=== PATIENT | female | born 1995 | race American Indian/Alaskan Native ===

== ENCOUNTER 2021-06-20 18:07 | Emergency (ER) | payer SELFPAY ==
[2021-06-20 18:15] VITALS: BP 142/84
--- NOTE | 2021-06-20 18:34 | Emergency Department Report ---
HPI - General Chief Complaint: Allergic Reaction ED Past Medical Hx - Past Medical History Previous Medical History?: No - Surgical History Past Surgical History?: No ED Review of Systems ROS: Stated complaint: ALLERGIC REACTION LIP,AND RIGHT FOOT BIG TOE Other details as noted in HPI Physical Exam - Physical Exam Vital Signs: Vital Signs 06/20/21 18:12 Temperature 98.6 F Pulse Rate 88 Respiratory 16 Rate Blood Pressure 142/84 [Left] O2 Sat by Pulse 98 Oximetry ED Course Vital Signs 06/20/21 18:12 Temperature 98.6 F Pulse Rate 88 Respiratory 16 Rate Blood Pressure 142/84 [Left] O2 Sat by Pulse 98 Oximetry Critical care attestation.: If time is entered above; I have spent that time in minutes in the direct care of this critically ill patient, excluding procedure time. ED Disposition Condition: Stable
--- NOTE | 2021-06-20 18:38 | Emergency Department Report ---
ED General Adult HPI - General Chief complaint: Allergic Reaction Stated complaint: ALLERGIC REACTION LIP,AND RIGHT FOOT BIG TOE Time Seen by Provider: 06/20/21 18:34 Source: patient Mode of arrival: Ambulatory Limitations: No Limitations - History of Present Illness Initial comments: 26-year-old female presents to the ER today with main complaints of possible infection associated with ingrown toenail but also complains of upper lip swelling which she thinks could be related to allergic reaction. Patient states that she has been dealing with an ingrown toenail to her right great toe off and on for about a month with associated swelling to the tissue around the toenail, intermittent drainage of yellow liquid. She states that she has been soaking it as well as using a lot of [id number] topical creams. She states that symptoms did seem to be getting better but then it just flares up again. She has never seen a supervisor grips to have it removed. She states that she is here today because she is concerned that there is an infection. She denies any recent injury to the toe. She denies any fever or chills. Patient also complains of a small swollen area to her upper lip that she noticed a couple days ago. She states that it started off as a small blister which then popped and since then area has been swollen, itchy and sore to touch. She states that she has had similar in the past, and thought it was related to the allergic reaction, never had to get checked out just resolved on his own. She denies any new lipsticks, new meds, facial products or any other new contacts at this time. She does not take any JESSICA inhibitors. She denies any tongue or throat involvement. She denies any difficulty breathing, cough, wheezing or any additional symptoms at this time. MD Complaint: Allergic Reaction/Lip swelling -: days(s) - Related Data Previous Rx's Medication Instructions Recorded Last Taken Type Acyclovir 400 mg PO TID #21 tablet 06/20/21 Unknown Rx Clindamycin [Clindamycin CAP] 300 mg PO Q6H #40 capsule 06/20/21 Unknown Rx Ibuprofen [Motrin] 600 mg PO Q8H PRN #30 tablet 06/20/21 Unknown Rx Allergies Allergy/AdvReac Type Severity Reaction Status Date / Time No Known Allergies Allergy Verified 06/20/21 18:12 ED Review of Systems ROS: Stated complaint: ALLERGIC REACTION LIP,AND RIGHT FOOT BIG TOE Other details as noted in HPI Comment: All other systems reviewed and negative Constitutional: denies: chills, fever Eyes: denies: eye pain, eye discharge, vision change ENT: denies: ear pain, throat pain, dental pain, hearing loss, epistaxis, congestion Respiratory: denies: cough, shortness of breath, SOB with exertion, SOB at rest, wheezing Cardiovascular: denies: chest pain, palpitations, dyspnea on exertion, edema, syncope, paroxysmal nocturnal dyspnea Endocrine: no symptoms reported Gastrointestinal: denies: abdominal pain, nausea, diarrhea, constipation, hematemesis, melena, hematochezia Genitourinary: denies: urgency, dysuria, frequency, hematuria, discharge, abnormal menses, dyspareunia Musculoskeletal: joint swelling, arthralgia. denies: myalgia Skin: rash, lesions, pruritus. denies: change in color Neurological: denies: headache, weakness, paresthesias Psychiatric: denies: anxiety, depression Hematological/Lymphatic: denies: easy bleeding, easy bruising ED Past Medical Hx - Past Medical History Previous Medical History?: No - Surgical History Past Surgical History?: No - Medications Home Medications: Home Medications Medication Instructions Recorded Confirmed Last Taken Type Acyclovir 400 mg PO TID #21 tablet 06/20/21 Unknown Rx Clindamycin [Clindamycin CAP] 300 mg PO Q6H #40 capsule 06/20/21 Unknown Rx Ibuprofen [Motrin] 600 mg PO Q8H PRN #30 tablet 06/20/21 Unknown Rx ED Physical Exam - General Limitations: No Limitations General appearance: alert, in no apparent distress - Head Head exam: Present: atraumatic, normocephalic, normal inspection - Eye Eye exam: Present: normal appearance, PERRL, EOMI Pupils: Present: normal accommodation - ENT ENT exam: Present: normal exam, normal orophraynx, mucous membranes moist, other (Mild swelling noted to the central aspect of the upper lip with some slight crusting and a very tiny ulcerated area noted. Mild tenderness to palpation. No induration or fluctuance.) - Neck Neck exam: Present: normal inspection, full ROM - Respiratory Respiratory exam: Present: normal lung sounds bilaterally. Absent: respiratory distress, wheezes, rales, rhonchi - Cardiovascular Cardiovascular Exam: Present: regular rate, normal rhythm, normal heart sounds - Expanded Lower Extremity Exam Right Foot/Toe exam: Present: full ROM, tenderness (Ingrown toenails noted to the right great toe, with associated swelling, and slight bruising noted to the lateral nail fold and posterior nail folds. There is some scant yellow drainage noted. No apparent signs of any significant cellulitis. No induration or fluctuance. No nail avulsion.), swelling. Absent: normal inspection Neuro vascular tendon exam: Present: no vascular compromise. Absent: abnormal cap refill, motor deficit, sensory deficit, tendon deficit Gait: Positive: observed and normal - Neurological Exam Neurological exam: Present: alert, oriented X3, CN II-XII intact, normal gait - Psychiatric Psychiatric exam: Present: normal affect, normal mood - Skin Skin exam: Present: intact ED Course Vital Signs 06/20/21 18:12 Temperature 98.6 F Pulse Rate 88 Respiratory 16 Rate Blood Pressure 142/84 [Left] O2 Sat by Pulse 98 Oximetry ED Medical Decision Making - Medical Decision Making Patient upper lip swelling more concerning for herpes labialis more than true angioedema. Patient has no tongue or throat swelling. Her airway is intact. She has no stridor on exam or any respiratory distress. She will be given prescription for acyclovir, and instructed to take Claritin to help with any itching. Patient does have an ingrown central to right great toe with some concern for associated infection, but no significant cellulitis, no necrotic toe, no apparent signs of an abscess or septic joint. Patient will be given a prescription for oral antibiotics and given referral to the supervisor grips for ingrown toenail removal. Patient expressed understanding of all instructions and agree with plan. Patient stable at time of discharge. Critical care attestation.: If time is entered above; I have spent that time in minutes in the direct care of this critically ill patient, excluding procedure time. ED Disposition Clinical Impression: Ingrown toenail with infection, Herpes labialis Disposition: HOME / SELF CARE / HOMELESS Is pt being admited?: No Does the pt Need Aspirin: No Condition: Stable Instructions: Ingrown Toenail, Cold Sore, [id number] Additional Instructions: I recommend that you continue to keep the toe clean with soap and water. Do not use any more hydrocortisone cream to the area, you can just use regular Neosporin after you clean and dry it well. Take the clindamycin as prescribed which will cover for any associated infection to the ingrown toenail but most importantly it is important that you follow-up with the supervisor grips listed on your discharge instructions for removal of the ingrown toenail. Take the acyclovir as prescribed to help with the area on your lip as it is concerning for possible cold sore, you can also take Claritin to help with any swelling and itching and take ibuprofen to help with pain. Follow-up with your PCP. Return to the ER if your symptoms worsens or changes in any way. Prescriptions: Acyclovir 400 mg PO TID #21 tablet Clindamycin [Clindamycin CAP] 300 mg PO Q6H #40 capsule Ibuprofen [Motrin] 600 mg PO Q8H PRN #30 tablet PRN Reason: Pain Referrals: SOHAM SEWELL DPM [Staff Physician] - 3-5 Days [facility] [Provider Group] - 3-5 Days Forms: Work/School Release Form(ED) Time of Disposition: 19:11
== END 2021-06-20 19:43 | disposition home or self-care (01) ==
LOC: ED 18:07
DX: L60.0 Ingrowing nail (principal); B00.1 Herpesviral vesicular dermatitis
CPT/HCPCS: 99282